=== PATIENT | male | born 1995 | race Native Hawaiian/Other Pacific Islander ===

== ENCOUNTER 2017-12-09 10:41 | Emergency (ER) | payer OTHER ==
[~2017-12-09] VITALS: Ht 182.9 cm; Wt 80.0 kg
[2017-12-09 10:45] VITALS: BP 124/56; PULSE 57; RESP 16; TEMP 97.4; O2SAT 100
[2017-12-09] MEDS ORDERED: TRAM50TA PO (11:15)
[2017-12-09] MEDS ORDERED: VITA1000 PO (11:15)
[2017-12-09 11:34] LABS: AUTOMATED NEUTROPHIL # 2.1 TH/MM3 (1.8-7.7); BASOPHIL # 0.1 TH/MM3 (0-0.2); BASOPHIL % 1.1 % (0.0-2.0); EOSINOPHIL # 0.3 TH/MM3 (0-0.4); EOSINOPHIL % 5.2 % (0.0-4.0); HEMATOCRIT 40.8 % (39.0-51.0); HEMOGLOBIN 13.8 GM/DL (13.0-17.0); LYMPH % 49.5 % (9.0-44.0); LYMPHOCYTE # 2.6 TH/MM3 (1.0-4.8); MEAN CELL VOLUME 89.6 FL (80.0-100.0); MEAN CORPUSCULAR HEMOGLOBIN 30.3 PG (27.0-34.0); MEAN CORPUSCULAR HGB CONC 33.8 % (32.0-36.0); MEAN PLATELET VOLUME 7.7 FL (7.0-11.0); MONO % 6.9 % (0.0-8.0); MONOCYTE # 0.4 TH/MM3 (0-0.9); NEUT % 37.3 % (16.0-70.0); PLATELET COUNT 223 TH/MM3 (150-450); RED BLOOD COUNT 4.55 MIL/MM3 (4.50-5.90); WHITE BLOOD COUNT 5.5 TH/MM3 (4.0-11.0)
--- NOTE | 2017-12-09 11:38 | PD ---
HPI Chief Complaint: Syncope/Near-Syncope Time Seen by Provider: 11:15 Travel History International Travel<30 days: No Contact w/Intl Traveler<30days: No Traveled to known affect area: No History of Present Illness HPI This patient had a spell of dizziness and lightheadedness. He had fatigue and generalized weakness. Happened 30 minutes prior to arrival. Lasted approximately 10 minutes. Patient reports a history of 2 years ago having syncope. He had an evaluation and there was concern for Brugada syndrome. He apparently had some degree of workup for this in [place] but is not really sure what was found. He says he had some kind of arrhythmia but does not know what it was. This point he feels well. Symptom severity at this time is mild. During the spell was moderate. No alleviating factors. Symptoms were not exertional. No exacerbating factors. Denies fever. He did not have palpitations or chest pain. Had some mild epigastric symptomatology during the spell that resolved. PFSH Past Medical History Heart Rhythm Problems: Yes (Brugada syndrome , enlarged right atrium) High Cholesterol: Yes Diminished Hearing: No Musculoskeletal: Yes (sciatica) Thyroid Disease: Yes Tetanus Vaccination: Unknown Influenza Vaccination: No Past Surgical History Surgical History: No Previous Surgery Social History Alcohol Use: No Tobacco Use: No Substance Use: No Allergies-Medications (Allergen,Severity, Reaction): Coded Allergies: No Known Allergies (Unverified , 12/09/17) Reported Meds & Prescriptions Reported Meds & Active Scripts Active Reported Vitamin D-1000 (Cholecalciferol) 1,000 Unit Tab 1,000 Units PO DAILY Tramadol (Tramadol HCl) 50 Mg Tab 50 Mg PO Q6H PRN Review of Systems General / Constitutional: No: Fever Eyes: No: Visual changes HENT: Positive: Lightheadedness, No: Headaches Cardiovascular: No: Chest Pain or Discomfort Respiratory: No: Shortness of Breath Gastrointestinal: Positive: Nausea Genitourinary: No: Dysuria Musculoskeletal: Positive: Weakness, No: Pain Skin: No Rash Neurologic: Positive: Weakness, Dizziness Psychiatric: No: Depression Endocrine: No: Polydipsia Hematologic/Lymphatic: No: Easy Bruising Physical Exam Narrative GENERAL: Well-nourished, well-developed patient in no apparent distress. SKIN: Focused skin assessment reveals no rash and nodules. Skin is Warm and dry. HEAD: Atraumatic. Normocephalic. EYES: Pupils equal and round. No scleral icterus. No injection or drainage. ENT: No nasal bleeding or discharge. Mucous membranes pink and moist. NECK: Trachea midline. No JVD. CARDIOVASCULAR: Regular rate and rhythm. No murmur appreciated. RESPIRATORY: No accessory muscle use. Clear to auscultation. Breath sounds equal bilaterally. GASTROINTESTINAL: Abdomen soft, non-tender, nondistended. Hepatic and splenic margins not palpable. MUSCULOSKELETAL: No obvious deformities. No clubbing. No cyanosis. No edema. NEUROLOGICAL: Awake and alert. No obvious cranial nerve deficits. Motor grossly within normal limits. Normal speech. PSYCHIATRIC: Appropriate mood and affect; insight and judgment normal. Data Data Last Documented VS Vital Signs Date Time Temp Pulse Resp B/P (MAP) Pulse Ox O2 Delivery O2 Flow Rate FiO2 12/09/17 11:22 20 12/09/17 10:45 97.4 57 124/56 (78) 100 Orders Orders Electrocardiogram (12/09/17 11:21) Complete Blood Count With Diff (12/09/17 11:21) Comprehensive Metabolic Panel (12/09/17 11:21) Iv Access Insert/Monitor (12/09/17 11:21) Magnesium (Mg) (12/09/17 11:15) Acetaminophen (Tylenol) (12/09/17 14:15) Labs Laboratory Tests Test 12/09/17 11:15 White Blood Count 5.5 TH/MM3 Red Blood Count 4.55 MIL/MM3 Hemoglobin 13.8 GM/DL Hematocrit 40.8 % Mean Corpuscular Volume 89.6 FL Mean Corpuscular Hemoglobin 30.3 PG Mean Corpuscular Hemoglobin Concent 33.8 % Red Cell Distribution Width 12.0 % Platelet Count 223 TH/MM3 Mean Platelet Volume 7.7 FL Neutrophils (%) (Auto) 37.3 % Lymphocytes (%) (Auto) 49.5 % Monocytes (%) (Auto) 6.9 % Eosinophils (%) (Auto) 5.2 % Basophils (%) (Auto) 1.1 % Neutrophils # (Auto) 2.1 TH/MM3 Lymphocytes # (Auto) 2.6 TH/MM3 Monocytes # (Auto) 0.4 TH/MM3 Eosinophils # (Auto) 0.3 TH/MM3 Basophils # (Auto) 0.1 TH/MM3 CBC Comment DIFF FINAL Differential Comment Blood Urea Nitrogen 11 MG/DL Creatinine 1.10 MG/DL Random Glucose 97 MG/DL Total Protein 7.2 GM/DL Albumin 3.6 GM/DL Calcium Level 8.9 MG/DL Magnesium Level 2.1 MG/DL Alkaline Phosphatase 56 U/L Aspartate Amino Transf (AST/SGOT) 22 U/L Alanine Aminotransferase (ALT/SGPT) 34 U/L Total Bilirubin 1.2 MG/DL Sodium Level 139 MEQ/L Potassium Level 3.8 MEQ/L Chloride Level 105 MEQ/L Carbon Dioxide Level 31.4 MEQ/L Anion Gap 3 MEQ/L Estimat Glomerular Filtration Rate 84 ML/MIN MDM Medical Decision Making Medical Screen Exam Complete: Yes Emergency Medical Condition: Yes Medical Record Reviewed: Yes Differential Diagnosis Cardiac arrhythmia, PACs, Brugada syndrome Narrative Course I have reviewed the patient's electronic medical record. I reviewed his EKG which shows a sinus rhythm. He does not have a right bundle branch block. But he does have some ST elevation in leads V1 and V2 heart rate 45.. IV placed and labs sent Extended cardiac monitoring reveals sinus bradycardia. he says his heart rate is always low CBC and metabolic studies and LFTs are normal I observed him for a while without any evidence of arrhythmia. I spoke with his data control assistant Dr. Lawler who knows him well. He reports that the patient had a very extensive workup in [place] including cardiac MRI and other things. He does not feel this is cardiac in advised that I observe him for 1 more hour and then ambulate him and see if he develops symptoms. We did that He walks fine without symptoms. When I rechecked him at the end he did complain of some headache. I gave him Tylenol which helped his headache. he is going to follow-up with Dr. Lawler and return if he worsens Diagnosis Primary Impression: Pre-syncope Additional Impressions: Lightheadedness Bradycardia Additional Instructions: Follow-up with Dr. Lawler and primary care Med/Other Pt SpecificInfo: Other Disposition: 01 DISCHARGE HOME Condition: Stable Tyree Boateng MD Dec 09, 2017 11:38
[2017-12-09 11:48] LABS: CHLORIDE 105 MEQ/L (98-107); SODIUM (NA) 139 MEQ/L (136-145)
[2017-12-09 11:50] LABS: CALCIUM 8.9 MG/DL (8.5-10.1); GLUCOSE,RANDOM 97 MG/DL (74-106)
[2017-12-09 11:51] LABS: ALBUMIN 3.6 GM/DL (3.4-5.0); BICARBONATE 31.4 MEQ/L (21.0-32.0); BLOOD UREA NITROGEN 11 MG/DL (7-18)
[2017-12-09 11:53] LABS: MAGNESIUM 2.1 MG/DL (1.5-2.5)
[2017-12-09 11:54] LABS: ALT (GPT) 34 U/L (12-78); AST (GOT) 22 U/L (15-37); GLOMERULAR FILTRATION RATE 84 ML/MIN (>89)
[2017-12-09 11:55] LABS: TOTAL BILIRUBIN ADULT 1.2 MG/DL (0.2-1.0); TOTAL PROTEIN 7.2 GM/DL (6.4-8.2)
[2017-12-09 11:56] LABS: ALKALINE PHOSPHATASE 56 U/L (45-117)
[2017-12-09] MEDS ORDERED: ACETAMINOPHEN 500 MG CPLT PO ONE (14:15)
[2017-12-09 14:34] VITALS: BP 103/50; PULSE 52; RESP 18; O2SAT 98
--- NOTE | 2017-12-09 15:22 | EKG ---
Date Performed: 12/09/2017 Time Performed: 11:05:10 PTAGE: 22 years EKG: SINUS BRADYCARDIA MINIMAL VOLTAGE CRITERIA FOR LVH, CONSIDER NORMAL VARIANT BORDERLINE ECG NO PREVIOUS TRACING DOCTOR: Nj Leon Interpretating Date/Time 12/09/2017 15:17:55
== END 2017-12-09 15:09 | disposition home or self-care (01) ==
LOC: PHED 10:41
DX: R55 Syncope and collapse (principal); R42 Dizziness and giddiness; R00.1 Bradycardia, unspecified; E78.00 Pure hypercholesterolemia, unspecified; E07.9 Disorder of thyroid, unspecified
CPT/HCPCS: 80053; 83735; 85025; 93005; 99284